=== PATIENT | female | born 1935 | race Two or more races ===

== ENCOUNTER 2018-04-29 18:18 | Inpatient (IN) | payer MEDICARE, MEDICAID ==
[~2018-04-29] VITALS: Ht 165.1 cm; Wt 59.1 kg
[2018-04-29 19:59] LABS: Basophils # (auto) 0 uL; Basophils % (auto) 0.7 % (0.0-2.0); Eosinophils # (auto) 0 uL; Eosinophils % (auto) 0.7 % (0.0-7.0); Hematocrit 33.1 % (36.0-46.0); Hemoglobin 11.1 g/dL (12.2-16.2); Lymphocytes # (auto) 1.1 uL; Lymphocytes % (auto) 19.4 % (10.0-50.0); Mean Corpuscular Hemoglobin 29.1 pg (28.0-32.0); Mean Corpuscular Hgb Conc. 33.4 g/dL (32.0-36.0); Monocytes # (auto) 0.5 uL; Monocytes % (auto) 9.5 % (0.0-12.0); Neutrophils # (auto) 3.9 uL; Neutrophils % (auto) 69.7 % (37.0-80.0); Nucleated Red Blood Cells % 0.2 %; Platelet Count (auto) 186 10^3/uL (140-450); Red Blood Cells 3.81 10^6/uL (4.0-5.20); Red Cell Distribution Width 16.7 % (11.8-14.3); White Blood Cell 5.6 10^3/uL (4.4-10.8)
[2018-04-29 20:16] LABS: Albumin 3.6 g/dL (3.4-5.0); Calcium 8.7 mg/dL (8.5-10.1); Potassium 4.3 mmol/L (3.5-5.1)
[2018-04-29 20:21] LABS: BUN/Creatinine Ratio 23.9; Bilirubin, Total 1.4 mg/dL (0.2-1.0); Total Protein 7.5 g/dL (6.4-8.2)
[2018-04-29] MEDS ORDERED: SODIUM CHLORIDE 0.9% 1,000 ML IV ONE (21:45)
[2018-04-29] MEDS ORDERED: MORPHINE SULFATE 4 MG/ML SYR/VIAL IV ONE (21:45)
[2018-04-29] MEDS ORDERED: NITROGLYCERIN 0.4 MG SL TAB SL ONE (21:45)
[2018-04-29 23:16] LABS: Urine Bacteria MOD /hpf (None Seen); Urine Blood TRACE /uL (Negative); Urine Specific Gravity 1.012 (1.001-1.035); Urine WBC 48 /hpf (0 - 5)
[2018-04-30] MEDS ORDERED: NITROGLYCERIN 0.4 MG SL TAB SL PRN (04:45)
[2018-04-30] MEDS ORDERED: ACETAMINOPHEN 500 MG TAB PO PRN (04:45)
[2018-04-30] MEDS ORDERED: ONDANSETRON HCL 4 MG/2 ML VIAL IV PRN (04:45)
[2018-04-30] MEDS ORDERED: ALBUTEROL SULF 2.5 MG/0.5ML(0.5%) NEB SOLN NEB PRN (04:45)
[2018-04-30] MEDS: CARVEDILOL 3.125 MG TAB PO SCH ×2 (08:00→18:17)
[2018-04-30 08:16] VITALS: BP 138/60
[2018-04-30 08:20] LABS: Basophils # (auto) 0 uL; Basophils % (auto) 0.7 % (0.0-2.0); Eosinophils # (auto) 0.1 uL; Eosinophils % (auto) 0.8 % (0.0-7.0); Hematocrit 30.6 % (36.0-46.0); Hemoglobin 10.3 g/dL (12.2-16.2); Lymphocytes # (auto) 1.4 uL; Lymphocytes % (auto) 21.7 % (10.0-50.0); Mean Corpuscular Hemoglobin 28.5 pg (28.0-32.0); Mean Corpuscular Hgb Conc. 33.5 g/dL (32.0-36.0); Mean Corpuscular Volume 85.1 fL (80.0-100.0); Monocytes # (auto) 0.6 uL; Monocytes % (auto) 9.3 % (0.0-12.0); Neutrophils # (auto) 4.3 uL; Neutrophils % (auto) 67.5 % (37.0-80.0); Nucleated Red Blood Cells % 0.1 %; Platelet Count (auto) 176 10^3/uL (140-450); Red Cell Distribution Width 16.3 % (11.8-14.3); White Blood Cell 6.4 10^3/uL (4.4-10.8)
[2018-04-30 08:50] LABS: Potassium 4.3 mmol/L (3.5-5.1)
[2018-04-30] MEDS: cefTRIAXone 1GM/50ML D5W 50 ML IV SCH (09:00)
[2018-04-30 09:49] LABS: INR 1.08 (0.9-1.15); Partial Thromboplastin Time 26.1 sec (23.78-33.04); Prothrombin Time 11.5 sec (9.27-12.13)
[2018-04-30] MEDS: ASPirin-EC 81 mg tab PO SCH (10:00)
[2018-04-30] MEDS: HYDROcodone-ACET 5/325MG TAB PO PRN ×2 (10:30→17:30)
[2018-04-30 17:07] VITALS: BP 132/76
[2018-04-30] MEDS ORDERED: HYDROmorphone HCL 2 MG/ML VL IV PRN (18:15)
[2018-04-30] MEDS: MORPHINE SULFATE 4 MG/ML SYR/VIAL IV PRN (18:53)
[2018-04-30 22:00] VITALS: BP 158/74
[2018-04-30] MEDS ORDERED: MONTELUKAST SODIUM 10 MG TAB PO SCH (22:00)
[2018-04-30] MEDS ORDERED: ATORVASTATIN 20 MG TAB PO SCH (22:00)
[2018-05-01 05:00] VITALS: BP 155/69
[2018-05-01 08:00] VITALS: BP 158/75
[2018-05-01] MEDS: MORPHINE SULFATE 4 MG/ML SYR/VIAL IV PRN (08:33)
[2018-05-01] MEDS: CARVEDILOL 3.125 MG TAB PO SCH (08:34)
[2018-05-01 09:00] VITALS: BP 158/75
[2018-05-01] MEDS: cefTRIAXone 1GM/50ML D5W 50 ML IV SCH (09:19)
[2018-05-01] MEDS: HYDROcodone-ACET 5/325MG TAB PO PRN (09:20)
[2018-05-01] MEDS: ASPirin-EC 81 mg tab PO SCH (09:20)
[2018-05-01] MEDS ORDERED: [UNRECOGNIZED DRUG - CODE] PO (10:30)
[2018-05-01] MEDS ORDERED: ACET250T3 PO (10:30)
[2018-05-01] MEDS ORDERED: ATOR40TA52 PO (10:30)
[2018-05-01] MEDS ORDERED: FLUT0.05 NAS (10:30)
[2018-05-01] MEDS ORDERED: ASPI-231 PO (10:30)
[2018-05-01] MEDS ORDERED: OMEP20TA PO (10:30)
[2018-05-01] MEDS ORDERED: MIRA25TA OR (10:30)
[2018-05-01] MEDS ORDERED: BUME1TAB PO (10:30)
[2018-05-01] MEDS ORDERED: CARV6.2551 PO (10:30)
[2018-05-01] MEDS ORDERED: ASCO-22 PO (10:30)
[2018-05-01] MEDS ORDERED: CHOL20007 OR (10:30)
[2018-05-01] MEDS ORDERED: MONT10TA34 OR (10:30)
[2018-05-01] MEDS ORDERED: DICL1GEL26 TD (10:30)
[2018-05-01] MEDS ORDERED: LOPE2CAP PO (10:30)
[2018-05-01] MEDS ORDERED: IPRIH IN (10:30)
[2018-05-01] MEDS ORDERED: AMIO200T33 PO (10:30)
[2018-05-01] MEDS ORDERED: MAGN400T5 OR (10:30)
[2018-05-01 11:25] VITALS: BP 158/75
[2018-05-01 13:00] VITALS: BP 157/74
[2018-05-01 16:39] VITALS: BP 149/63
== END 2018-05-01 17:22 | disposition home or self-care (01) | DRG 315 ==
LOC: ER 18:18 → TELE 18:19 → TELE-CENTR 04-30 08:34
PROVIDERS: ADMIT Nurse Practitioner Family; ATTEND Internal Medicine
DX: S26.91XA Contusion of heart, unspecified with or without hemopericardium, initial encounter (principal); N39.0 Urinary tract infection, site not specified; I50.42 Chronic combined systolic (congestive) and diastolic (congestive) heart failure; I11.0 Hypertensive heart disease with heart failure; D64.9 Anemia, unspecified; I25.10 Atherosclerotic heart disease of native coronary artery without angina pectoris; Z79.82 Long term (current) use of aspirin; Z88.2 Allergy status to sulfonamides; Z95.0 Presence of cardiac pacemaker; Y93.89 Activity, other specified; Y99.8 Other external cause status; Y92.488 Other paved roadways as the place of occurrence of the external cause; V29.9XXA Motorcycle rider (driver) (passenger) injured in unspecified traffic accident, initial encounter
CPT/HCPCS: 36415; 71045; 80048; 80053; 81001; 82550; 82553; 84484; 85025; 85379; 85610; 85730; 87086; 93005; 93306; 96361; 96365; 96375; G0378; J0696; J2405

== ENCOUNTER 2022-11-09 14:49 | Inpatient (IN) | payer MEDICARE, MEDICAID ==
[~2022-11-09] VITALS: Ht 152.4 cm; Wt 66.5 kg
[~2022-11-09 14:49] MED LIST: ACET250T20 PO; AMIO200T33 PO; ASCO500T16 PO; ASPI1TAB20 PO; ATOR40TA52 PO; BUME1TAB3 PO; CARV6.2551 PO; CHOL20007 OR; DICL1GEL26 TD; FLUT0.05 NAS; IPRIH IN; LOPE2CAP PO; MAGN400T40 OR; MIRA25TA OR; MONT-8 OR; OMEP20TA PO; [UNRECOGNIZED DRUG - CODE] PO
[2022-11-09 16:07] LABS: Basophils # (auto) 0 10 ^3/uL (0-0.2); Basophils % (auto) 0.3 % (0.0-2.0); Eosinophils # (auto) 0 10 ^3/uL (0-0.8); Eosinophils % (auto) 0.4 % (0.0-7.0); Hematocrit 27.3 % (36.0-46.0); Lymphocytes # (auto) 1.1 10 ^3/uL (0.4-5.4); Lymphocytes % (auto) 21.1 % (10.0-50.0); Mean Corpuscular Hemoglobin 27.9 pg (28.0-32.0); Mean Corpuscular Hgb Conc. 32.9 g/dL (32.0-36.0); Mean Corpuscular Volume 84.8 fL (80.0-100.0); Monocytes # (auto) 0.6 10 ^3/uL (0-1.3); Monocytes % (auto) 11.6 % (0.0-12.0); Neutrophils # (auto) 3.4 10 ^3/uL (1.6-8.6); Neutrophils % (auto) 66.6 % (37.0-80.0); Nucleated Red Blood Cells % 0.3 %; Red Blood Cells 3.22 10^6/uL (4.0-5.20); Red Cell Distribution Width 17.2 % (11.8-14.3); White Blood Cell 5.1 10^3/uL (4.4-10.8)
[2022-11-09 16:22] LABS: Albumin 3.5 g/dL (3.4-5.0); BUN/Creatinine Ratio 24.1 (10.0-20.0); Calcium 9.4 mg/dL (8.5-10.1); Potassium 4.7 mmol/L (3.5-5.1)
[2022-11-09 16:24] LABS: Bilirubin, Total 1.4 mg/dL (0.2-1.0); Total Protein 6.8 g/dL (6.4-8.2)
[2022-11-09] MEDS ORDERED: IPRATROPIUM BROM 0.5 MG/2.5ML INH SOL NEB ONE (16:30)
[2022-11-09] MEDS ORDERED: ALBUTEROL SULF 2.5 MG/0.5ML(0.5%) NEB SOLN NEB ONE (16:30)
[2022-11-09 16:43] LABS: Urine Bacteria NONE SEEN /hpf (None Seen); Urine Blood Negative /uL (Negative); Urine Budding Yeast MODERATE /hpf (None Seen); Urine Hyaline Cast FEW /lpf (0 - 2); Urine Specific Gravity 1.018 (1.001-1.035); Urine WBC 77 /hpf (0 - 5)
[2022-11-09] MEDS ORDERED: ASPirin 325 MG TAB PO ONE (17:00)
[2022-11-09] MEDS ORDERED: DOCUSATE SOD 100 MG CAP PO PRN (17:15)
[2022-11-09] MEDS ORDERED: NITROGLYCERIN 0.4 MG SL TAB SL PRN (17:15)
[2022-11-09] MEDS ORDERED: MORPHINE SULFATE INJ 2 MG/ml SYRG IV PRN (17:15)
[2022-11-09] MEDS ORDERED: HYDROcodone-ACET 5/325MG TAB PO PRN (17:15)
[2022-11-09] MEDS ORDERED: SITA25TA3 PO (17:25)
[2022-11-09] MEDS ORDERED: DEXTROSE (50%) 50ML SYRG IV PRN (17:45)
[2022-11-09] MEDS ORDERED: NITROGLYCERIN 0.4 MG SL TAB SL ONE (18:30)
[2022-11-09 21:16] VITALS: BP 157/46
[2022-11-09] MEDS: SODIUM CHLOR 0.9% PF (SALINE LOCK) 10ML VIAL/SYR IV SCH (22:41)
[2022-11-09] MEDS ORDERED: IOHEXOL 350 MG/ML 100ML IJ ONE (22:51)
[2022-11-09] MEDS: ACCU-CHEK COMFORT CURVE STRIP VI SCH (23:01)
[2022-11-09] MEDS: ATORVASTATIN 20 MG TAB PO SCH (23:09)
[2022-11-09] MEDS: InsuLIN REG 1unit/0.01ml Soln (100units/ml) SC SCH (23:09)
[2022-11-09] MEDS: MAGNESIUM OXIDE 400 MG TAB PO SCH (23:09)
[2022-11-09] MEDS: CARVEDILOL 3.125 MG TAB PO SCH (23:12)
[2022-11-10] MEDS: ALBUTEROL SULF 2.5 MG/0.5ML(0.5%) NEB SOLN NEB PRN ×2 (00:48→11:08)
[2022-11-10] MEDS: IPRATROPIUM BROM 0.5 MG/2.5ML INH SOL NEB PRN ×2 (00:49→11:08)
[2022-11-10] MEDS: SODIUM CHLOR 0.9% PF (SALINE LOCK) 10ML VIAL/SYR IV SCH ×3 (06:21→21:02)
[2022-11-10 06:37] LABS: Basophils # (auto) 0 10 ^3/uL (0-0.2); Eosinophils # (auto) 0 10 ^3/uL (0-0.8); Lymphocytes # (auto) 1.1 10 ^3/uL (0.4-5.4); Monocytes # (auto) 0.7 10 ^3/uL (0-1.3); Neutrophils # (auto) 3.6 10 ^3/uL (1.6-8.6); White Blood Cell 5.4 10^3/uL (4.4-10.8)
[2022-11-10 06:39] LABS: Basophils % (auto) 0.4 % (0.0-2.0); Eosinophils % (auto) 0.7 % (0.0-7.0); Hematocrit 25.2 % (36.0-46.0); Hemoglobin 8.6 g/dL (12.2-16.2); Lymphocytes % (auto) 20.5 % (10.0-50.0); Mean Corpuscular Hemoglobin 28.9 pg (28.0-32.0); Mean Corpuscular Hgb Conc. 34.4 g/dL (32.0-36.0); Mean Corpuscular Volume 84.1 fL (80.0-100.0); Monocytes % (auto) 12.2 % (0.0-12.0); Neutrophils % (auto) 66.2 % (37.0-80.0); Nucleated Red Blood Cells % 0.2 %; Red Blood Cells 2.99 10^6/uL (4.0-5.20); Red Cell Distribution Width 16.9 % (11.8-14.3)
[2022-11-10] MEDS: ACCU-CHEK COMFORT CURVE STRIP VI SCH ×4 (06:39→21:28)
[2022-11-10] MEDS: InsuLIN REG 1unit/0.01ml Soln (100units/ml) SC SCH ×4 (06:41→21:31)
[2022-11-10 06:59] LABS: Potassium 4.3 mmol/L (3.5-5.1)
[2022-11-10 07:08] LABS: Albumin 3.2 g/dL (3.4-5.0); BUN/Creatinine Ratio 28.7 (10.0-20.0); Bilirubin, Total 1.3 mg/dL (0.2-1.0); Calcium 9.2 mg/dL (8.5-10.1); Total Protein 6.1 g/dL (6.4-8.2)
[2022-11-10] MEDS: PATIENTS OWN MEDICATION (Sitagliptin Phosphate (Januvia) 1 TAB) PO SCH (10:00)
[2022-11-10] MEDS: MIRABEGRON BASE 25 MG PO SCH (10:00)
[2022-11-10] MEDS: BUMETANIDE 1 MG TAB PO SCH (10:42)
[2022-11-10] MEDS: CARVEDILOL 3.125 MG TAB PO SCH ×2 (10:43→21:02)
[2022-11-10] MEDS: ASPirin-EC 81 mg tab PO SCH (10:43)
[2022-11-10] MEDS: AMIODARONE HCL 200 MG TAB PO SCH (10:43)
[2022-11-10] MEDS: PANTOPRAZOLE 40 MG TAB PO SCH (10:44)
[2022-11-10] MEDS: MAGNESIUM OXIDE 400 MG TAB PO SCH ×2 (10:44→21:01)
[2022-11-10] MEDS: ASCORBIC ACID 500 MG TAB PO SCH (10:44)
[2022-11-10] MEDS ORDERED: hydrALAZINE HCL 20 MG/ML VL IV PRN (11:45)
[2022-11-10] MEDS ORDERED: SACUBITRIL-VALSARTAN 24mg/26mg TAB PO ONE (11:45)
[2022-11-10] MEDS: ACETAMINOPHEN 325 MG TAB PO PRN (14:12)
[2022-11-10 16:18] VITALS: BP 142/51
[2022-11-10 17:00] VITALS: BP 142/51
[2022-11-10] MEDS: ATORVASTATIN 20 MG TAB PO SCH (21:01)
[2022-11-10] MEDS: SACUBITRIL-VALSARTAN 24mg/26mg TAB PO SCH (21:27)
[2022-11-10 22:00] VITALS: BP 175/43
[2022-11-11] MEDS: ONDANSETRON HCL 4 MG/2 ML VIAL IV PRN ×2 (04:25→18:11)
[2022-11-11 05:00] VITALS: BP 148/34
[2022-11-11] MEDS: EMPAGLIFLOZIN 10 MG TAB PO SCH (06:28)
[2022-11-11] MEDS: SODIUM CHLOR 0.9% PF (SALINE LOCK) 10ML VIAL/SYR IV SCH ×3 (06:28→22:24)
[2022-11-11] MEDS: ACCU-CHEK COMFORT CURVE STRIP VI SCH ×4 (06:30→21:18)
[2022-11-11] MEDS: InsuLIN REG 1unit/0.01ml Soln (100units/ml) SC SCH ×4 (06:30→21:55)
[2022-11-11 09:00] VITALS: BP 110/47
[2022-11-11] MEDS: ASCORBIC ACID 500 MG TAB PO SCH (09:48)
[2022-11-11] MEDS: PANTOPRAZOLE 40 MG TAB PO SCH (09:49)
[2022-11-11] MEDS: ASPirin-EC 81 mg tab PO SCH (09:49)
[2022-11-11] MEDS: MAGNESIUM OXIDE 400 MG TAB PO SCH ×2 (09:49→21:16)
[2022-11-11] MEDS: AMIODARONE HCL 200 MG TAB PO SCH (09:49)
[2022-11-11] MEDS: CARVEDILOL 3.125 MG TAB PO SCH ×2 (09:51→21:16)
[2022-11-11] MEDS: SACUBITRIL-VALSARTAN 24mg/26mg TAB PO SCH ×2 (09:51→21:15)
[2022-11-11] MEDS: MIRABEGRON BASE 25 MG PO SCH (09:52)
[2022-11-11] MEDS: BUMETANIDE 1 MG TAB PO SCH (09:52)
[2022-11-11] MEDS: PATIENTS OWN MEDICATION (Sitagliptin Phosphate (Januvia) 1 TAB) PO SCH (09:52)
[2022-11-11 12:44] VITALS: BP 118/53
[2022-11-11 17:00] VITALS: BP 119/47
[2022-11-11] MEDS ORDERED: ALBUTEROL SULF 2.5 MG/0.5ML(0.5%) NEB SOLN NEB ONE (19:45)
[2022-11-11] MEDS: ATORVASTATIN 20 MG TAB PO SCH (21:16)
[2022-11-11 22:03] VITALS: BP 116/46
[2022-11-12] VITALS (7 sets, daily range): BP systolic 93–134; BP diastolic 32–45
[2022-11-12] MEDS: ACCU-CHEK COMFORT CURVE STRIP VI SCH ×4 (06:03→21:34)
[2022-11-12] MEDS: InsuLIN REG 1unit/0.01ml Soln (100units/ml) SC SCH ×4 (06:03→21:36)
[2022-11-12] MEDS: EMPAGLIFLOZIN 10 MG TAB PO SCH (06:03)
[2022-11-12] MEDS: SODIUM CHLOR 0.9% PF (SALINE LOCK) 10ML VIAL/SYR IV SCH ×3 (06:04→22:16)
[2022-11-12] MEDS: ACETAMINOPHEN 325 MG TAB PO PRN ×2 (06:16→22:16)
[2022-11-12] MEDS: IPRATROPIUM BROM 0.5 MG/2.5ML INH SOL NEB PRN (09:26)
[2022-11-12] MEDS: ALBUTEROL SULF 2.5 MG/0.5ML(0.5%) NEB SOLN NEB PRN (09:26)
[2022-11-12] MEDS: PATIENTS OWN MEDICATION (Sitagliptin Phosphate (Januvia) 1 TAB) PO SCH (10:00)
[2022-11-12] MEDS: SACUBITRIL-VALSARTAN 24mg/26mg TAB PO SCH ×2 (10:00→21:34)
[2022-11-12] MEDS: MIRABEGRON BASE 25 MG PO SCH (10:00)
[2022-11-12] MEDS: BUMETANIDE 1 MG TAB PO SCH (10:00)
[2022-11-12] MEDS: CARVEDILOL 3.125 MG TAB PO SCH ×2 (10:00→22:16)
[2022-11-12] MEDS: ASPirin-EC 81 mg tab PO SCH (10:01)
[2022-11-12] MEDS: ASCORBIC ACID 500 MG TAB PO SCH (10:01)
[2022-11-12] MEDS: AMIODARONE HCL 200 MG TAB PO SCH (10:01)
[2022-11-12] MEDS: MAGNESIUM OXIDE 400 MG TAB PO SCH ×2 (10:01→21:34)
[2022-11-12] MEDS: PANTOPRAZOLE 40 MG TAB PO SCH (10:01)
[2022-11-12] MEDS: cefTRIAXone 1GM/50ML D5W 50 ML IV SCH (16:56)
[2022-11-12] MEDS: ATORVASTATIN 20 MG TAB PO SCH (21:33)
[2022-11-12] MEDS: ONDANSETRON HCL 4 MG/2 ML VIAL IV PRN (21:34)
[2022-11-13 05:00] VITALS: BP 106/42
[2022-11-13] MEDS: SODIUM CHLOR 0.9% PF (SALINE LOCK) 10ML VIAL/SYR IV SCH ×2 (05:13→14:00)
[2022-11-13] MEDS: ACCU-CHEK COMFORT CURVE STRIP VI SCH ×4 (05:13→21:45)
[2022-11-13] MEDS: InsuLIN REG 1unit/0.01ml Soln (100units/ml) SC SCH ×4 (05:13→21:44)
[2022-11-13] MEDS: ACETAMINOPHEN 325 MG TAB PO PRN ×2 (05:13→17:14)
[2022-11-13 08:35] VITALS: BP 111/45
[2022-11-13] MEDS: IPRATROPIUM BROM 0.5 MG/2.5ML INH SOL NEB PRN (09:49)
[2022-11-13] MEDS: ALBUTEROL SULF 2.5 MG/0.5ML(0.5%) NEB SOLN NEB PRN (09:49)
[2022-11-13] MEDS ORDERED: Sitagliptin Phosphate (Januvia) 25 MG TABLET PO SCH (10:00)
[2022-11-13] MEDS: MIRABEGRON BASE 25 MG PO SCH (10:00)
[2022-11-13] MEDS: CARVEDILOL 3.125 MG TAB PO SCH ×2 (10:00→21:34)
[2022-11-13] MEDS: SACUBITRIL-VALSARTAN 24mg/26mg TAB PO SCH ×2 (10:00→21:33)
[2022-11-13] MEDS: BUMETANIDE 1 MG TAB PO SCH (10:00)
[2022-11-13] MEDS: ASPirin-EC 81 mg tab PO SCH (10:16)
[2022-11-13] MEDS: AMIODARONE HCL 200 MG TAB PO SCH (10:17)
[2022-11-13] MEDS: MAGNESIUM OXIDE 400 MG TAB PO SCH ×2 (10:18→21:33)
[2022-11-13] MEDS: PANTOPRAZOLE 40 MG TAB PO SCH (10:18)
[2022-11-13] MEDS: ASCORBIC ACID 500 MG TAB PO SCH (10:18)
[2022-11-13] MEDS: cefTRIAXone 1GM/50ML D5W 50 ML IV SCH (10:19)
[2022-11-13 12:40] VITALS: BP 128/63
[2022-11-13] MEDS: Sitagliptin Phosphate (Januvia) 25 MG TABLET PO SCH (13:10)
[2022-11-13 16:35] VITALS: BP 119/35
[2022-11-13] MEDS: ATORVASTATIN 20 MG TAB PO SCH (21:35)
[2022-11-13 22:00] VITALS: BP 131/51
[2022-11-14] MEDS: SODIUM CHLOR 0.9% PF (SALINE LOCK) 10ML VIAL/SYR IV SCH ×3 (01:36→15:23)
[2022-11-14 05:00] VITALS: BP 118/46
[2022-11-14] MEDS: ACCU-CHEK COMFORT CURVE STRIP VI SCH ×2 (06:10→11:35)
[2022-11-14] MEDS: InsuLIN REG 1unit/0.01ml Soln (100units/ml) SC SCH ×2 (06:10→11:43)
[2022-11-14 08:00] VITALS: BP 139/47
[2022-11-14 09:00] VITALS: BP 139/47
[2022-11-14] MEDS: MIRABEGRON BASE 25 MG PO SCH (10:00)
[2022-11-14] MEDS: Sitagliptin Phosphate (Januvia) 25 MG TABLET PO SCH (10:00)
[2022-11-14] MEDS: cefTRIAXone 1GM/50ML D5W 50 ML IV SCH (10:01)
[2022-11-14] MEDS: ASPirin-EC 81 mg tab PO SCH (10:02)
[2022-11-14] MEDS: SACUBITRIL-VALSARTAN 24mg/26mg TAB PO SCH (10:02)
[2022-11-14] MEDS: ASCORBIC ACID 500 MG TAB PO SCH (10:02)
[2022-11-14] MEDS: MAGNESIUM OXIDE 400 MG TAB PO SCH (10:03)
[2022-11-14] MEDS: BUMETANIDE 1 MG TAB PO SCH (10:03)
[2022-11-14] MEDS: CARVEDILOL 3.125 MG TAB PO SCH (10:03)
[2022-11-14] MEDS: AMIODARONE HCL 200 MG TAB PO SCH (10:03)
[2022-11-14] MEDS: PANTOPRAZOLE 40 MG TAB PO SCH (10:04)
[2022-11-14] MEDS ORDERED: CEPH-510 PO (13:23)
[2022-11-14 14:57] VITALS: BP 118/46
== END 2022-11-14 16:07 | disposition home or self-care (01) | DRG 280 ==
LOC: ER 14:49 → TELE 17:25 → TELE-WESTW 11-10 16:12
PROVIDERS: ADMIT Nurse Practitioner Family; ATTEND Internal Medicine
DX: I11.0 Hypertensive heart disease with heart failure (principal); I50.43 Acute on chronic combined systolic (congestive) and diastolic (congestive) heart failure; I21.A1 Myocardial infarction type 2; N17.9 Acute kidney failure, unspecified; N39.0 Urinary tract infection, site not specified; E11.9 Type 2 diabetes mellitus without complications; Z20.822 Contact with and (suspected) exposure to COVID-19; E78.5 Hyperlipidemia, unspecified; J44.9 Chronic obstructive pulmonary disease, unspecified; D64.9 Anemia, unspecified; I16.0 Hypertensive urgency; I27.20 Pulmonary hypertension, unspecified; I48.0 Paroxysmal atrial fibrillation; Z85.42 Personal history of malignant neoplasm of other parts of uterus; Z95.810 Presence of automatic (implantable) cardiac defibrillator; Z83.3 Family history of diabetes mellitus; Z88.2 Allergy status to sulfonamides; Z90.711 Acquired absence of uterus with remaining cervical stump
CPT/HCPCS: 36415; 71045; 71275; 78582; 80053; 81001; 82962; 83735; 83880; 84484; 85025; 85379; 87086; 87426; 93005; 93306; 93970; 94640; 99291; G0378; J0696; J1815; J2405

== ENCOUNTER 2024-05-23 13:32 | Inpatient (IN) | payer MEDICARE, MEDICAID ==
[~2024-05-23] VITALS: Ht 157.5 cm; Wt 54.8 kg
[~2024-05-23 13:32] MED LIST changes: +CEPH-510 PO; -CHOL20007 OR; +CHOL20007 PO; -MAGN400T40 OR; +MAGN400T40 PO; +SITA25TA3 PO
[2024-05-23 14:32] LABS: Urine Bacteria FEW /hpf (None Seen); Urine Blood TRACE /uL (Negative); Urine Clarity Turbid (Clear); Urine Color Light-Yellow (Yellow); Urine Protein, UAD 1+ (Negative); Urine Specific Gravity 1.016 (1.001-1.035); Urine Urobilinogen Normal (Negative); Urine WBC 254 /hpf (0 - 5); Urine pH 5.5 (5.0-9.0)
--- NOTE | 2024-05-23 14:54 | ED.PDOC ---
General HPI Comments 88 year old female accompanied by daughter presents to the ED with chief complaint of dysuria. Daughter reports that the patient has been experiencing some dysuria with associated urine frequency, weakness, headache, and bilateral flank pain for the past month. Patient relays that she is now not able to move around on her own due to her sudden weakness. Daughter states patient is no longer on her blood pressure and diabetes medication. Patient denies any fever, chills, hematuria, dizziness, chest pain, or SOB. Chief Complaint: Urinary Time Seen by MD: 14:50 Primary Care Provider: SPENCER Reviewed notes: Nurses Notes, Medications, Allergies Allergies: Coded Allergies: Sulfa Antibiotics (Verified Allergy, Unknown, 04/29/18) Home Meds Active Scripts Cephalexin ( Keflex 500) 500 Mg Cap, 1 CAP PO QID, #28 CAP Prov:CANDE VERMA MD 11/14/22 Reported Medications Sitagliptin Phosphate (Januvia) 25 Mg Tab, 1 TAB PO DAILY 11/09/22 Diclofenac Sodium (Topical) (Voltaren) 1 % Gel, 1 % TD QID PRN for PAIN SCALE 7 THRU 10, GEL 05/01/18 Cholecalciferol (VITAMIN D3) 2,000 Unit Tab, 1000 UNIT OR BID, TAB 05/01/18 Psyllium (METAMUCIL MULTIHEALTH FIB) 63 % Pow, 49 % PO BID, POW 05/01/18 Omeprazole (Gnp Omeprazole) 20 Mg Tab, 20 MG PO DAILY, TAB 05/01/18 Montelukast Sodium (MONTELUKAST SODIUM) 10 Mg Tab, 10 MG OR HS, TAB 05/01/18 Mirabegron Base (MYRBETRIQ) 25 Mg Tab, 25 MG OR DAILY, TAB 05/01/18 Magnesium Oxide (MAGNESIUM OXIDE) 400 Mg Tab, 400 MG OR BID, TAB 05/01/18 Loperamide Hcl (Loperamide Hcl) 2 Mg Cap, 2 MG PO PRN, MG 05/01/18 Ipratropium [place] Hfa (Atrovent Hfa) 17 Mcg Aer, 0.5 MG IN QIDP PRN for SHORTNESS OF BREATH, AER 05/01/18 Fluticasone Propionate (Fluticasone Propionate) 0.05 % Cre, 220 MCG ARACELI BID for 30 Days, MCG 05/01/18 Carvedilol (Carvedilol) 6.25 Mg Tab, 6.25 MG PO Q12HR for 30 Days, MG 05/01/18 Bumetanide (Bumetanide) 1 Mg Tab, 1 MG PO DAILY for 30 Days, MG 05/01/18 Atorvastatin Calcium (ATORVASTATIN CALCIUM) 40 Mg Tab, 40 MG PO HS, TAB 05/01/18 Aspirin (Aspir-81) 81 Mg Tab, 1 TAB PO DAILY, #30 TAB 5 Refills 05/01/18 Ascorbic Acid (Ascorbic Acid) 500 Mg Tab, 1000 MG PO DAILY for 30 Days, MG 05/01/18 Amiodarone Hcl (Amiodarone Hcl) 200 Mg Tab, 200 MG PO DAILY for 30 Days 05/01/18 Acetazolamide (Acetazolamide) 250 Mg Tab, 500 MG PO Q8HP PRN for PAIN SCALE 7 THRU 10 for 30 Days, MG 0 Refills 05/01/18 Information Source: Patient, Relative (Daughter) Mode of Arrival: Ambulatory Severity: Moderate Inability to void: None Timing: Months Duration: Since onset Prehospital treatment: None Onset: Spontaneous Symptoms: Dysuria, Frequency, Other (Weakness, JAEGER) History of: None Location: (R) Flank, (L)Flank Modifying factors: None associated signs and symptoms: Flank Pain, Dysuria, Frequency Past Medical History PAST MEDICAL HISTORY: DM, HTN Surgical History: Pacemaker 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 History Family History Family History: Reviewed,noncontributory to illness, Unknown Social History Smoker: Non-Smoker Alcohol: Denies ETOH Use Drugs: Denies Drug Use Lives In: Home Constitutional: reports: weakness; denies: chills, diaphoresis, fatigue, fever, malaise, sweats, others EENTM: denies: blurred vision, double vision, ear bleeding, ear discharge, ear drainage, ear pain, ear ringing, eye pain, eye redness, hearing loss, mouth pain, mouth swelling, nasal discharge, nose bleeding, nose congestion, nose pain, photophobia, tearing, throat pain, throat swelling, voice changes, others Respiratory: denies: cough, hemoptysis, orthopnea, SOB at rest, shortness of breath, SOB with excertion, stridor, wheezing, others Cardiovascular: denies: chest pain, dizzy spells, diaphoresis, Dyspnea on exertion, edema, irregular heart beat, left arm pain, lightheadedness, palpitations, PND, syncope, others Gastrointestinal: denies: abdomen distended, abdominal pain, blood streaked bowels, constipated, diarrhea, dysphagia, difficulty swallowing, hematemesis, melena, nausea, poor appetite, poor fluid intake, rectal bleeding, rectal pain, vomiting, others Genitourinary: reports: dysuria, flank pain, frequency; denies: abnormal vagina bleeding, burning, dyspareunia, hematuria, incontinence, pain, , vagina discharge, urgency, others Neurological: reports: headache; denies: dizziness, fainting, left sided numbness, left sided weakness, numbness, paresthesia, pre-existing deficit, right sided numbness, right sided weakness, seizure, speech problems, tingling, tremors, weakness, others Musculoskeletal: denies: back pain, gout, joint pain, joint swelling, muscle pain, muscle stiffness, neck pain, others Integumetry: denies: bruises, change in color, change in hair/nails, dryness, laceration, lesions, lumps, rash, wounds, others Allergic/Immunocompromised: denies: Difficulty Healing, Frequent Infections, Hives, Itching, others Hematologic/Lymphatic: denies: anemia, blood clots, easy bleeding, easy bruising, swollen glands, others Endocrine: denies: excessive hunger, excessive sweating, excessive thirst, excessive urination, flushing, intolerance to cold, intolerance to heat, unexplained weight gain, unexplained weight loss, others Psychiatric: denies: anxiety, bipolar disorder, depression, hopeless, panic disorder, schizophrenia, sleepless, suicidal, others All Other Systems: Reviewed and Negative Physical Exam General Appearance: Moderate Distress, Normal HEENT: Normal ENT Inspection, PERRL/EOMI Neck: Full Range of Motion, Non-Tender, Normal, Normal Inspection Respiratory: Chest Non-Tender, Lungs Clear, No Accessory Muscle Use, No Respiratory Distress, Normal Breath Sounds Cardiovascular: No Edema, No JVD, No Murmur, No Gallop, Normal Peripheral Pulses, Regular Rate/Rhythm Breast Exam: Deferred Gastrointestinal: No Organomegaly, Non Tender, No Pulsatile Mass, Normal Bowel Sounds, Soft Genitalia: Deferred Pelvic: Deferred Rectal: Deferred Extremities: No calf tenderness, Normal capillary refill, Normal inspection, Normal range of motion, Non-tender, No pedal edema Musculoskeletal : Apperance: Normal Neurologic: Alert, refueler II-XII nml as Tested, No Motor Deficits, Normal Affect, Normal Mood, No Sensory Deficits Cerebellar Function: Normal Reflexes: Normal Skin: Dry, Normal Color, Warm Peripheral Pulses: 3+ Radial (R), 3+ Radial (L) Lymphatic: No Adenopathy Was a procedure done? Was a procedure done?: No Differential Diagnosis Kidney stone (Female): Musculoskeletal pain, Urinary obstruction, Urolithiasis Urinary Problem (Female): Pyelonephritis, UTI X-Ray, Labs, Meds, VS Vital Signs Date Time Temp Pulse Resp B/P (MAP) Pulse Ox O2 Delivery O2 Flow Rate FiO2 05/23/24 13:55 98.9 66 17 151/46 (81) 97 Lab Test 05/23/24 14:34 05/23/24 13:48 Range/Units White Blood Count 5.3 4.4-10.8 10^3/uL Red Blood Count 3.24 L 4.0-5.20 10^6/uL Hemoglobin 9.2 L 12.2-16.2 g/dL Hematocrit 27.7 L 36.0-46.0 % Mean Corpuscular Volume 85.6 80.0-100.0 fL Mean Corpuscular Hemoglobin 28.3 28.0-32.0 pg Mean Corpuscular Hemoglobin Concent 33.1 32.0-36.0 g/dL Red Cell Distribution Width 17.0 H 11.8-14.3 % Platelet Count 199 140-450 10^3/uL Mean Platelet Volume 10.6 6.9-10.8 fL Neutrophils (%) (Auto) 64.3 37.0-80.0 % Lymphocytes (%) (Auto) 20.9 10.0-50.0 % Monocytes (%) (Auto) 13.2 H 0.0-12.0 % Eosinophils (%) (Auto) 1.0 0.0-7.0 % Basophils (%) (Auto) 0.6 0.0-2.0 % Neutrophils # (Auto) 3.4 1.6-8.6 10 ^3/uL Lymphocytes # (Auto) 1.1 0.4-5.4 10 ^3/uL Monocytes # (Auto) 0.7 0-1.3 10 ^3/uL Eosinophils # (Auto) 0.1 0-0.8 10 ^3/uL Basophils # (Auto) 0 0-0.2 10 ^3/uL Nucleated Red Blood Cells 0.3 % Sodium Level 145 136-145 mmol/L Potassium Level 4.0 3.5-5.1 mmol/L Chloride Level 112 H 98-107 mmol/L Carbon Dioxide Level 25 20-31 mmol/L Anion Gap 8 5-15 Blood Urea Nitrogen 25 H 9-23 mg/dL Creatinine 1.23 H 0.550-1.02 mg/dL Glomerular Filtration Rate Calc 42 >90 mL/min BUN/Creatinine Ratio 20.3 H 10.0-20.0 Serum Glucose 100 74-106 mg/dL Calcium Level 10.3 8.7-10.4 mg/dL Troponin I High Sensitivity 220 *H </=34 ng/L Urine Color Light-yellow Yellow Urine Clarity Turbid H Clear Urine pH 5.5 5.0-9.0 Urine Specific [place] 1.016 1.001-1.035 Urine Protein 1+ H Negative Urine Ketones Negative Negative Urine Blood Trace H Negative /uL Urine Nitrite Negative Negative Urine Bilirubin Negative Negative Urine Urobilinogen Normal Negative mg/dL Urine Leukocyte Esterase 3+ Negative /uL Urine RBC 11 0 - 4 /hpf Urine WBC 254 0 - 5 /hpf Urine Squamous Epithelial Cells None seen <5 /hpf Urine Bacteria Few H None Seen /hpf Urine Glucose Normal Normal mg/dL Patient alert. Complaining of chest pain. Vitals stable. Answering all questions. Kidney function elevated. Cardiac marker elevated. Was given aspirin. Was given Lovenox. Was given Rocephin. EKG reviewed does not show any acute changes. Cardiology consultation. Echocardiogram. Explained to the patient. Continue cardiac monitoring. Time of 1ST Reevaluation: 15:50 Reevaluation 1ST: Unchanged Patient Education/Counseling: Diagnosis, Treatment Family Education/Counseling: Diagnosis, Treatment Departure 1 Departure Time of Disposition: 17:11 Impression: Primary Impression: NSTEMI (non-ST elevated myocardial infarction) Additional Impression: UTI (urinary tract infection) Qualified Codes: N30.00 - Acute cystitis without hematuria Disposition: ADMITTED INPATIENT Admit to: Med Surg Condition: Guarded Critical Care Note Critical Care Time?: Yes (45 min-critical care time only) Stability Stability form required: No Heart Score Heart Score: Heart Score Response (Comments) Value History Slightly Suspicious 0 EKG Normal 0 Age >65 2 Risk Factors >3 or Hx ASHD 2 Troponin >3 x's Normal limit 2 Total 6 I personally scribed for ALISHA JACOBSON MD ([email or web address]) on 05/23/24 at 14:54. Electronically submitted by Hardeep Olivarez ([email or web address]). I personally scribed for ALISHA JACOBSON MD ([email or web address]) on 05/23/24 at 14:55. Electronically submitted by Hardeep Olivarez ([email or web address]). ALISHA JACOBSON MD May 23, 2024 14:54
[2024-05-23 14:55] LABS: Basophils # (auto) 0 10 ^3/uL (0-0.2); Basophils % (auto) 0.6 % (0.0-2.0); Eosinophils # (auto) 0.1 10 ^3/uL (0-0.8); Hematocrit 27.7 % (36.0-46.0); Hemoglobin 9.2 g/dL (12.2-16.2); Lymphocytes # (auto) 1.1 10 ^3/uL (0.4-5.4); Lymphocytes % (auto) 20.9 % (10.0-50.0); Mean Corpuscular Hemoglobin 28.3 pg (28.0-32.0); Mean Corpuscular Hgb Conc. 33.1 g/dL (32.0-36.0); Mean Corpuscular Volume 85.6 fL (80.0-100.0); Monocytes # (auto) 0.7 10 ^3/uL (0-1.3); Monocytes % (auto) 13.2 % (0.0-12.0); Neutrophils # (auto) 3.4 10 ^3/uL (1.6-8.6); Neutrophils % (auto) 64.3 % (37.0-80.0); Nucleated Red Blood Cells % 0.3 %; Platelet Count (auto) 199 10^3/uL (140-450); Red Blood Cells 3.24 10^6/uL (4.0-5.20); White Blood Cell 5.3 10^3/uL (4.4-10.8)
[2024-05-23 14:57] LABS: Sodium 145 mmol/L (136-145)
[2024-05-23 14:58] LABS: Anion Gap 8 (5-15); Carbon Dioxide 25 mmol/L (20-31)
[2024-05-23 14:59] LABS: Calcium 10.3 mg/dL (8.7-10.4)
[2024-05-23 15:03] LABS: BUN/Creatinine Ratio 20.3 (10.0-20.0); Blood Urea Nitrogen 25 mg/dL (9-23); Chloride 112 mmol/L (98-107); Glucose 100 mg/dL (74-106)
[2024-05-23] MEDS ORDERED: NITROGLYCERIN 0.4 MG SL TAB SL PRN ×2 (15:45)
[2024-05-23] MEDS ORDERED: ZOLPIDEM TARTRATE 5 MG TAB PO PRN (15:45)
[2024-05-23] MEDS: SODIUM CHLORIDE 0.9% 1,000 ML IV SCH (15:45)
[2024-05-23] MEDS ORDERED: MORPHINE SULFATE INJ 2 MG/ml SYRG IV PRN (15:45)
[2024-05-23] MEDS ORDERED: MORPHINE SULFATE 4 MG/ML SYR/VIAL IV PRN (15:45)
[2024-05-23] MEDS: MAALOX PLUS or MAALOX 30 ML PO ONE (15:45)
[2024-05-23] MEDS: ASPirin 325 MG TAB PO SCH (15:45)
[2024-05-23] MEDS ORDERED: LORazepam 0.5 MG TAB PO PRN (15:45)
--- NOTE | 2024-05-23 16:21 | DVHHP2 ---
History of Present Illness Reason for Visit: urinary pain History of Present Illness 88-year-old female past medical history of diabetes hypertension comes to the ED with complaints of having pain while urinating patient states that for the past few days she has been having flank pain bilaterally been having trouble urinating having pain while urinating having generalized weakness and feeling like there was headaches and that she is getting dizzy sometimes and also having trouble with how many times she has to go to the bathroom patient was evaluated in the ED shown to have urinary tract infection and was recommended for inpatient admission management and continued care Cardiovascular: CAD, HTN Renal/: UTI Review of Systems Constitutional: Yes: Fever, Weakness; No: Chills, Sweats, Malaise, Other Eyes: No: Pain, Vision change, Conjunctivae inflammation, Eyelid inflammation, Other, Redness ENT: No: Ear pain, Ear discharge, Nose pain, Nose discharge, Nose congestion, Mouth pain, Mouth swelling, Throat pain, Throat swelling, Other Respiratory: No: Cough, Dry, Shortness of breath, SOB with excertion, Wheezing, Hemoptysis, Pleuritic Pain, Sputum, Wheezing, Other Cardiovascular: Chest Pain; No: Palpitations, Orthopnea, Paroxysmal Noc. Dyspnea, Edema, Lt Headedness, Other Gastrointestinal: No: Nausea, Vomiting, Abdominal Pain, Diarrhea, Constipation, Melena, Hematochezia, Other Genitourinary: Dysuria, Frequency, Incontinence; No Hematuria, No Retention, No Other Musculoskeletal: No: other, neck pain, shoulder pain, arm pain, back pain, hand pain, leg pain, foot pain Skin: No: Rash, Lesions, Jaundice, Bruising, Other Neurological: No: Weakness, Numbness, Incoordination, Change in speech, Confusion, Seizures, Other Allergies: Coded Allergies: Sulfa Antibiotics (Verified Allergy, Unknown, 04/29/18) Exam Vital Signs Vital Signs Date Time Temp Pulse Resp B/P (MAP) Pulse Ox O2 Delivery O2 Flow Rate FiO2 05/23/24 13:55 98.9 66 17 151/46 (81) 97 General Appearance: Alert, Oriented X3, mild distress HEENT: Atraumatic, PERRLA, EOMI Respiratory: Clear to auscultation, Normal air movement Cardiovascular: Regular rate, Normal S1, Normal S2 Abdominal: Normal bowel sounds, Soft Extremities: No clubbing, No cyanosis, No edema Skin: No rashes, No breakdown Neuro: Normal gait, Normal speech Psych/Mental Status: Mood NL Labs/Xrays Labs Test 05/23/24 14:34 05/23/24 13:48 Range/Units White Blood Count 5.3 4.4-10.8 10^3/uL Red Blood Count 3.24 L 4.0-5.20 10^6/uL Hemoglobin 9.2 L 12.2-16.2 g/dL Hematocrit 27.7 L 36.0-46.0 % Mean Corpuscular Volume 85.6 80.0-100.0 fL Mean Corpuscular Hemoglobin 28.3 28.0-32.0 pg Mean Corpuscular Hemoglobin Concent 33.1 32.0-36.0 g/dL Red Cell Distribution Width 17.0 H 11.8-14.3 % Platelet Count 199 140-450 10^3/uL Mean Platelet Volume 10.6 6.9-10.8 fL Neutrophils (%) (Auto) 64.3 37.0-80.0 % Lymphocytes (%) (Auto) 20.9 10.0-50.0 % Monocytes (%) (Auto) 13.2 H 0.0-12.0 % Eosinophils (%) (Auto) 1.0 0.0-7.0 % Basophils (%) (Auto) 0.6 0.0-2.0 % Neutrophils # (Auto) 3.4 1.6-8.6 10 ^3/uL Lymphocytes # (Auto) 1.1 0.4-5.4 10 ^3/uL Monocytes # (Auto) 0.7 0-1.3 10 ^3/uL Eosinophils # (Auto) 0.1 0-0.8 10 ^3/uL Basophils # (Auto) 0 0-0.2 10 ^3/uL Nucleated Red Blood Cells 0.3 % Sodium Level 145 136-145 mmol/L Potassium Level 4.0 3.5-5.1 mmol/L Chloride Level 112 H 98-107 mmol/L Carbon Dioxide Level 25 20-31 mmol/L Anion Gap 8 5-15 Blood Urea Nitrogen 25 H 9-23 mg/dL Creatinine 1.23 H 0.550-1.02 mg/dL Glomerular Filtration Rate Calc 42 >90 mL/min BUN/Creatinine Ratio 20.3 H 10.0-20.0 Serum Glucose 100 74-106 mg/dL Calcium Level 10.3 8.7-10.4 mg/dL Troponin I High Sensitivity 220 *H </=34 ng/L Urine Color Light-yellow Yellow Urine Clarity Turbid H Clear Urine pH 5.5 5.0-9.0 Urine Specific [place] 1.016 1.001-1.035 Urine Protein 1+ H Negative Urine Ketones Negative Negative Urine Blood Trace H Negative /uL Urine Nitrite Negative Negative Urine Bilirubin Negative Negative Urine Urobilinogen Normal Negative mg/dL Urine Leukocyte Esterase 3+ Negative /uL Urine RBC 11 0 - 4 /hpf Urine WBC 254 0 - 5 /hpf Urine Squamous Epithelial Cells None seen <5 /hpf Urine Bacteria Few H None Seen /hpf Urine Glucose Normal Normal mg/dL Assessment/Plan Assessment/Plan Admit to telemetry Generalized weakness In the setting of acute urinary tract infection Rule out pyelonephritis IV hydration IV antibiotics Possible need for physical therapy evaluation due to weakness and unsteady gait NSTEMI Elevated troponin 1st troponin greater than 200 Patient with no acute complaints of chest pain No stated history of palpations Patient does have a previous stated history of being on multiple medications for heart management Chest pain protocol Cardiology evaluation Patient remains at high risk due to age alone Unsure if able to be capped we will defer that decision to Cardiology Trend troponins Plan discussed with: Patient My Orders Orders - ALCIDES GIBSON MD Procedure Category Date Status Time Admit ADMIT 05/23/24 Verified 15:45 Code Status CODE 05/23/24 Verified 15:45 0.9%Ns 1000 Ml PHA 05/23/24 Verified 15:45 Aspirin Tablet PHA 05/24/24 Verified 10:00 Aspirin Tablet PHA 05/23/24 Verified 15:45 Lipitor 40mg Hs PHA 05/23/24 Verified Hi-Intensity 22:00 Carvedilol Tablet PHA 05/23/24 Verified (Coreg Tablet) 22:00 Lisinopril Tablet PHA 05/24/24 Verified (Zestril Tablet) 10:00 Morphine Sulfate PHA 05/23/24 Verified Injection 15:45 Acetaminophen Tablet PHA 05/23/24 Verified (Tylenol Tablet) 15:45 Zolpidem Tartrate PHA 05/23/24 Verified (Ambien) 15:45 Lorazepam Tablet PHA 05/23/24 Verified (Ativan Tablet) 15:45 Docusate Sodium PHA 05/24/24 Verified Capsule (Colace 10:00 Complete Blood Count LAB 05/24/24 Verified 04:00 Basic Metabolic Panel LAB 05/24/24 Verified 04:00 Nitroglycerin PHA 05/23/24 Verified Sublingual (Ntrostat 15:45 Ondansetron Hcl PHA 05/23/24 Verified (Zofran) 15:45 Electrocardigram EKG 05/23/24 Verified 15:45 Alum & Mag PHA 05/23/24 Verified Hydrox-Simethicone 15:45 Troponin-I Hs LAB 05/23/24 Verified 15:45 Cardiac JOYCELYN 05/23/24 Verified Rehabilitation - Outpa Nitroglycerin PHA 05/23/24 Verified Sublingual (Ntrostat 15:45 Morphine Sulfate PHA 05/23/24 Verified Injection 15:45 Stat Ekg For Chest JOYCELYN 05/23/24 Verified Pain 15:45 Notify Md Of Changes [facility] 05/23/24 Verified From Base 15:45 Rubber Compounder Formulator For [facility] 05/23/24 Verified 24 Hours 15:45 Emergency Dysrhythmia JOYCELYN 05/23/24 Verified Protocol 15:45 Rhythm Strips Once [facility] 05/23/24 Verified Every Shift 15:45 Oxygen By Nasal RT 05/23/24 Verified Cannula 15:45 * Cardiology Consult CONS 05/23/24 Verified 15:45 Problem List: (1) NSTEMI (non-ST elevated myocardial infarction) (2) UTI (urinary tract infection) (3) Elevated troponin Date of Service: May 23, 2024 Billing Provider: ALCIDES GIBSON MD Common Visit Codes: [id number] INP/OBS CARE (HIGH) ALCIDES GIBSON MD May 23, 2024 16:21
[2024-05-23] MEDS: ENOXAPARIN SOD 60 MG/0.6 ML SYRINGE SC ONE (17:15)
[2024-05-23] MEDS: ASPirin 81 mg TAB PO ONE (17:15)
[2024-05-23] MEDS: cefTRIAXone 1GM/50ML D5W 50 ML IV SCH (18:56)
[2024-05-23 21:28] VITALS: PULSE 60; RESP 16; O2SAT 99
[2024-05-23 23:10] VITALS: BP 187/77; PULSE 60; PULSE 61; RESP 18; RESP 20; TEMP 97.5; O2SAT 100
[2024-05-23 23:20] VITALS: BP 187/77; PULSE 61; RESP 20; TEMP 97.5; O2SAT 100
[2024-05-23] MEDS: ATORVASTATIN 20 MG TAB PO SCH (23:45)
[2024-05-23] MEDS: CARVEDILOL 3.125 MG TAB PO SCH (23:46)
[2024-05-24] VITALS (8 sets, daily range): BP systolic 107–174; BP diastolic 40–103; PULSE 60–64; RESP 16–20; TEMP 97–98.2; O2SAT 95–100
[2024-05-24] MEDS: cloNIDine HCL 0.1 MG TAB PO PRN (01:02)
[2024-05-24] MEDS: ACETAMINOPHEN 325 MG TAB PO PRN (01:02)
[2024-05-24] MEDS ORDERED: CETI10CA PO (01:59)
[2024-05-24 07:03] LABS: Basophils # (auto) 0 10 ^3/uL (0-0.2); Basophils % (auto) 0.4 % (0.0-2.0); Eosinophils # (auto) 0 10 ^3/uL (0-0.8); Eosinophils % (auto) 1.2 % (0.0-7.0); Lymphocytes # (auto) 0.8 10 ^3/uL (0.4-5.4); Lymphocytes % (auto) 23.5 % (10.0-50.0); Mean Corpuscular Hemoglobin 28.4 pg (28.0-32.0); Mean Corpuscular Hgb Conc. 33.3 g/dL (32.0-36.0); Mean Corpuscular Volume 85.2 fL (80.0-100.0); Monocytes # (auto) 0.5 10 ^3/uL (0-1.3); Monocytes % (auto) 13.7 % (0.0-12.0); Neutrophils # (auto) 2.1 10 ^3/uL (1.6-8.6); Neutrophils % (auto) 61.2 % (37.0-80.0); Nucleated Red Blood Cells % 0.2 %; Platelet Count (auto) 189 10^3/uL (140-450); Red Blood Cells 3.17 10^6/uL (4.0-5.20); Red Cell Distribution Width 17.2 % (11.8-14.3); White Blood Cell 3.4 10^3/uL (4.4-10.8)
[2024-05-24 07:19] LABS: Calcium 10.2 mg/dL (8.7-10.4); Sodium 143 mmol/L (136-145)
[2024-05-24 07:20] LABS: Anion Gap 7 (5-15); Carbon Dioxide 26 mmol/L (20-31)
[2024-05-24 07:25] LABS: BUN/Creatinine Ratio 18.6 (10.0-20.0); Blood Urea Nitrogen 18 mg/dL (9-23)
[2024-05-24 07:52] LABS: Chloride 110 mmol/L (98-107); Glucose 64 mg/dL (74-106)
[2024-05-24 08:11] LABS: Anisocytosis Slight
[2024-05-24 08:12] LABS: Macrocytosis Moderate
[2024-05-24 08:13] LABS: Platelet Estimate Adequate
[2024-05-24] MEDS: ASPirin 81 mg TAB PO SCH (09:37)
[2024-05-24] MEDS: DOCUSATE SOD 100 MG CAP PO SCH (09:37)
[2024-05-24] MEDS: LISINOPRIL 5 MG TAB PO SCH (09:38)
--- NOTE | 2024-05-24 12:53 | DVHPN2 ---
Subjective Patient continues to report having lower back pain, suprapubic pain, dysuria. Reviewed: Care Plan, H&P, Labs, Medications Changes from previous H/P or p: No Changes General: Per HPI Eyes: No Pain, No Vision change, No Conjunctivae inflammation, No Eyelid inflammation, No Other, No Redness ENT: No Ear pain, No Ear discharge, No Nose pain, No Nose discharge, No Nose congestion, No Mouth pain, No Mouth swelling, No Throat pain, No Throat swelling, No Other Cardiovascular: Chest Pain; No Palpitations, No Orthopnea, No Paroxysmal Noc. Dyspnea, No Edema, No Lt Headedness, No Other Respiratory: No Cough, No Dry, No Shortness of breath, No SOB with excertion, No Wheezing, No Hemoptysis, No Pleuritic Pain, No Sputum, No Other Gastrointestinal: No Nausea, No Vomiting, No Abdominal Pain, No Diarrhea, No Constipation, No Melena, No Hematochezia, No Other Genitourinary: Dysuria, Frequency, Incontinence; No Hematuria, No Retention, No Other Musculoskeletal: No other, No neck pain, No shoulder pain, No arm pain, No back pain, No hand pain, No leg pain, No foot pain Skin: No Rash, No Lesions, No Jaundice, No Bruising, No Other Objective Vitals Vital Signs Date Time Temp Pulse Resp B/P (MAP) Pulse Ox O2 Delivery O2 Flow Rate FiO2 05/24/24 12:23 153/79 05/24/24 09:37 63 05/24/24 09:00 98.2 18 99 98.2 05/24/24 07:30 Room Air* 0 21 Intake/Output Intake and Output 05/24/24 07:00 Intake Total 500 ml Balance 500 ml Intake Oral 200 ml IV Total 300 ml # Voids 2 General Appearance: Alert, Oriented X3, Cooperative, mild distress HEENT: Atraumatic, PERRLA Lungs: Clear to auscultation, Normal air movement Cardiovascular: Normal S1, Normal S2 Abdomen: Normal bowel sounds, Soft, No tenderness Musculoskeletal: Normal sensory function, Normal motor function Neuro: Normal gait, Normal speech Psych/Mental Status: Mental status NL, Mood NL Medications Current Medications Medications Dose Ordered Sig/Dee Route Start Time Stop Time Status Last Admin Dose Admin Sodium Chloride 1,000 ml @ 75 mls/hr [id number] IV 05/23/24 15:45 Aspirin 81 mg DAILY PO 05/24/24 10:00 05/24/24 09:37 81 MG Atorvastatin Calcium 40 mg HS PO 05/23/24 22:00 05/23/24 23:45 40 MG Carvedilol 6.25 mg Q12HR PO 05/23/24 22:00 05/24/24 09:37 6.25 MG Lisinopril 5 mg DAILY PO 05/24/24 10:00 05/24/24 09:38 5 MG Morphine Sulfate 2 mg Q30MP PRN IV 05/23/24 15:45 Acetaminophen 650 mg Q6HP PRN PO 05/23/24 15:45 05/24/24 01:02 650 MG Zolpidem Tartrate 5 mg QHSP PRN PO 05/23/24 15:45 Lorazepam 0.5 mg Q6HP PRN PO 05/23/24 15:45 Docusate Sodium 100 mg DAILY PO 05/24/24 10:00 05/24/24 09:37 100 MG Nitroglycerin 0.4 mg Q5MINP PRN SL 05/23/24 15:45 Ondansetron HCl 4 mg Q4HP PRN IV 05/23/24 15:45 Ceftriaxone Sodium 50 ml @ 100 mls/hr DAILY@09 IV 05/23/24 17:24 05/24/24 09:38 100 MLS/HR Clonidine HCl 0.1 mg Q4HP PRN PO 05/23/24 23:00 05/24/24 12:23 0.1 MG Laboratory Results Laboratory Tests 05/24/24 06:17 Chemistry Test 05/23/24 14:34 05/24/24 06:17 Calcium Level 10.3 mg/dL (8.7-10.4) 10.2 mg/dL (8.7-10.4) Urinalysis Test 05/23/24 13:48 Urine Color Light-yellow (Yellow) Urine Clarity Turbid (Clear) H Urine pH 5.5 (5.0-9.0) Urine Specific [place] 1.016 (1.001-1.035) Urine Protein 1+ (Negative) H Urine Ketones Negative (Negative) Urine Blood Trace /uL (Negative) H Urine Nitrite Negative (Negative) Urine Bilirubin Negative (Negative) Urine Urobilinogen Normal mg/dL (Negative) Urine Leukocyte Esterase 3+ /uL (Negative) Urine RBC 11 /hpf (0 - 4) Urine WBC 254 /hpf (0 - 5) Urine Squamous Epithelial Cells None seen /hpf (<5) Urine Bacteria Few /hpf (None Seen) H Urine Glucose Normal mg/dL (Normal) Labs and/or images reviewed: Labs reviewed by me, Image(s) reviewed by me Assessment/Plan Assessment/Plan Impression: -complicated cystitis -NSTEMI, probably type 2 -? CAD, history -primary hypertension Plan: -given blood noted in urinalysis, ordered kidney ultrasound -continue IV antibiotic therapy with Rocephin , add Pyridium -urine culture -cardiology consultation -continue aspirin and beta murphy -repeat troponin level -physical therapy -repeat labs in a.m. Total time spent with patient discussing and formulating plan of care: 35 minutes. This medical document was created using an electronic medical record system with [employer] dictation system. Although this document has been carefully reviewed, there may still be some phonetic and typographical errors. These areas are purely typographical due to imperfections of the software programs, and do not reflect any compromise in the patient's medical care. Plan discussed with: Patient, Other (RN) My Orders Orders - FRANCO CRESPO NP Procedure Category Date Status Time Urine Bacterial JOAQUIM 05/24/24 Logged Culture 11:55 Kidney US 05/24/24 Transmitted 12:46 Troponin-I Hs LAB 05/25/24 Verified 04:00 * Cardiology Consult CONS 05/24/24 Transmitted 12:46 Date of Service: May 24, 2024 Billing Provider: FRANCO CRESPO NP Common Visit Codes: [id number] INP/OBS CARE(HIGH) FRANCO CRESPO NP May 24, 2024 12:52
--- NOTE | 2024-05-24 13:23 | DVHINCON2 ---
Date Seen: May 24, 2024 Referring Physician TIFFANY Paul Reason for Consultation NSTEMI History of Present Illness This is a pleasant 88-year-old female who presented to the emergency room with a chief complaint of dysuria. The patient complains of dysuria associated with a burning sensation, frequency, dribbling, and lower back pain. Cardiology consulted given troponin levels in the 200s ng/L. There was no twelve lead electrocardiogram on file. Denies chest pain, palpitations, diaphoresis, shortness of breath, dizziness, or syncopal events. [place] primary scientific [place] [facility] [place] Significant medical history includes congestive heart failure, status post AICD implantation with generator exchange on 08/2022, pulmonary hypertension, paroxysmal atrial fibrillation on aspirin, hypertension, dyslipidemia, diabetes mellitus, and COPD. Past Medical History Past medical history reviewed. No other significant than mentioned above. Past Surgical History AICD implantation status post generator exchange on 2022 Partial hysterectomy Family History: Diabetes mellitus Family History Family history reviewed. Social History Denies the use of illicit drugs, alcohol, or tobacco use. Allergies: Coded Allergies: Sulfa Antibiotics (Verified Allergy, Unknown, 04/29/18) Codeine (Verified Adverse Reaction, Mild, 05/24/24) Home Meds Active Scripts Cephalexin ( Keflex 500) 500 Mg Cap, 1 CAP PO QID, #28 CAP Prov:CANDE VERMA MD 11/14/22 Reported Medications Cetirizine Hcl (Zyrtec Allergy) 10 Mg Cap, 5 MG PO DAILY, CAP 05/24/24 Sitagliptin Phosphate (Januvia) 25 Mg Tab, 1 TAB PO DAILY 11/09/22 Diclofenac Sodium (Topical) (Voltaren) 1 % Gel, 1 % TD QID PRN for PAIN SCALE 7 THRU 10, GEL 05/01/18 Cholecalciferol (VITAMIN D3) 2,000 Unit Tab, 1000 UNIT OR BID, TAB 05/01/18 Psyllium (METAMUCIL MULTIHEALTH FIB) 63 % Pow, 49 % PO BID, POW 05/01/18 Omeprazole (Gnp Omeprazole) 20 Mg Tab, 20 MG PO DAILY, TAB 05/01/18 Montelukast Sodium (MONTELUKAST SODIUM) 10 Mg Tab, 10 MG OR HS, TAB 05/01/18 Mirabegron Base (MYRBETRIQ) 25 Mg Tab, 25 MG OR DAILY, TAB 05/01/18 Magnesium Oxide (MAGNESIUM OXIDE) 400 Mg Tab, 400 MG OR BID, TAB 05/01/18 Loperamide Hcl (Loperamide Hcl) 2 Mg Cap, 2 MG PO PRN, MG 05/01/18 Ipratropium [place] Hfa (Atrovent Hfa) 17 Mcg Aer, 0.5 MG IN QIDP PRN for SHORTNESS OF BREATH, AER 05/01/18 Fluticasone Propionate (Fluticasone Propionate) 0.05 % Cre, 220 MCG ARACELI BID for 30 Days, MCG 05/01/18 Carvedilol (Carvedilol) 6.25 Mg Tab, 6.25 MG PO Q12HR for 30 Days, MG 05/01/18 Bumetanide (Bumetanide) 1 Mg Tab, 1 MG PO DAILY for 30 Days, MG 05/01/18 Atorvastatin Calcium (ATORVASTATIN CALCIUM) 40 Mg Tab, 40 MG PO HS, TAB 05/01/18 Aspirin (Aspir-81) 81 Mg Tab, 1 TAB PO DAILY, #30 TAB 5 Refills 05/01/18 Ascorbic Acid (Ascorbic Acid) 500 Mg Tab, 1000 MG PO DAILY for 30 Days, MG 05/01/18 Amiodarone Hcl (Amiodarone Hcl) 200 Mg Tab, 200 MG PO DAILY for 30 Days 05/01/18 Acetazolamide (Acetazolamide) 250 Mg Tab, 500 MG PO Q8HP PRN for PAIN SCALE 7 THRU 10 for 30 Days, MG 0 Refills 05/01/18 Home Meds Home medications reviewed. Current Medications Current Medications Medications (Trade) Dose Ordered Sig/Dee Route PRN Reason Start Time Stop Time Status Last Admin Sodium Chloride 1,000 ml @ 75 mls/hr [id number] IV 05/23/24 15:45 Aspirin 81 mg DAILY PO 05/24/24 10:00 05/24/24 09:37 Aspirin 325 mg DAILY PO 05/23/24 15:45 05/23/24 23:59 DC Atorvastatin Calcium (Lipitor) 40 mg HS PO 05/23/24 22:00 05/23/24 23:45 Carvedilol (Coreg Tablet) 6.25 mg Q12HR PO 05/23/24 22:00 05/24/24 09:37 Lisinopril (Zestril Tablet) 5 mg DAILY PO 05/24/24 10:00 05/24/24 09:38 Morphine Sulfate 2 mg Q30MP PRN IV FOR CHEST PAIN 05/23/24 15:45 Acetaminophen (Tylenol Tablet) 650 mg Q6HP PRN PO MILD PAIN (1-3 PAIN SCALE) 05/23/24 15:45 05/24/24 01:02 Zolpidem Tartrate (Ambien) 5 mg QHSP PRN PO FOR INSOMNIA 05/23/24 15:45 Lorazepam (Ativan Tablet) 0.5 mg Q6HP PRN PO ANXIETY 05/23/24 15:45 Docusate Sodium (Colace Capsule) 100 mg DAILY PO 05/24/24 10:00 05/24/24 09:37 Nitroglycerin (Ntrostat Sublingual) 0.4 mg Q5MINP PRN SL FOR CHEST PAIN 05/23/24 15:45 Ondansetron HCl (Zofran) 4 mg Q4HP PRN IV NAUSEA / VOMITING 05/23/24 15:45 Nitroglycerin (Ntrostat Sublingual) 0.4 mg Q5MINP PRN SL FOR CHEST PAIN 05/23/24 15:45 05/23/24 16:24 DC Morphine Sulfate 2 mg Q30M PRN IV FOR CHEST PAIN 05/23/24 15:45 05/23/24 16:24 DC Ceftriaxone Sodium 50 ml @ 100 mls/hr DAILY@09 IV 05/23/24 17:24 05/24/24 09:38 Clonidine HCl (Catapres Tablet) 0.1 mg Q4HP PRN PO SBP>150 05/23/24 23:00 05/24/24 12:23 Phenazopyridine HCl (Pyridium Tablet) 100 mg BIDWM PO 05/24/24 18:00 05/26/24 17:59 Review of Systems Constitutional: No symptom reported Ears, Nose, & Throat: No symptom reported Eyes: No symptom reported Neurological: No symptoms reported Pulmonary/Respiratory: No symptom reported Cardiovascular: No symptom reported Gastrointestinal: No symptom reported Genitourinary: Dysuria, lower back pain Musculoskeletal: No symptom reported Skin: No symptom reported Psychiatric: No symptom reported Endocrine: No symptom reported Hemotologic/Lymphatic: No symptom reported Vital Signs Vital Signs Date Time Temp Pulse Resp B/P (MAP) Pulse Ox O2 Delivery O2 Flow Rate FiO2 05/24/24 12:23 153/79 05/24/24 09:37 63 05/24/24 09:00 98.2 18 99 98.2 05/24/24 07:30 Room Air* 0 21 Physical Exam General Appearance: Cooperative. Elder. Hard of hearing. In no acute distress Head Exam: Normal inspection Neck Exam: Normal inspection. Non-tender. Normal alignment Pulmonary/Respiratory: Chest non-tender. Clear bilateral breath sounds Cardiovascular/Chest: Regular rate and rhythm. S1, S2. No murmurs. No JVD. Peripheral Pulses: 2+ Radial (R). 2+ Radial (L). 2+ Pedal (R). 2+ Pedal (L) Abdominal Exam: Normal bowel sounds. Soft. Nontender. No hepatospenomegaly. No masses Ankle Exam: Negative ankle edema Lower extremities: Negative lower extremity edema Neuro/Mental Status: A&O x. Coherent Thoughts/Psych: Normal thought pattern. Appropriate mood and affect. Good judgement and insight Appearance: In no acute distress Skin Exam: Normal inspection. Normal color. Warm. Dry Labs/Diagnostic Data Labs Test 05/24/24 06:17 05/23/24 18:25 05/23/24 13:48 Range/Units White Blood Count 3.4 #L 4.4-10.8 10^3/uL Red Blood Count 3.17 L 4.0-5.20 10^6/uL Hemoglobin 9.0 L 12.2-16.2 g/dL Hematocrit 27.0 L 36.0-46.0 % Mean Corpuscular Volume 85.2 80.0-100.0 fL Mean Corpuscular Hemoglobin 28.4 28.0-32.0 pg Mean Corpuscular Hemoglobin Concent 33.3 32.0-36.0 g/dL Red Cell Distribution Width 17.2 H 11.8-14.3 % Platelet Count 189 140-450 10^3/uL Mean Platelet Volume 10.9 H 6.9-10.8 fL Neutrophils (%) (Auto) 61.2 37.0-80.0 % Lymphocytes (%) (Auto) 23.5 10.0-50.0 % Monocytes (%) (Auto) 13.7 H 0.0-12.0 % Eosinophils (%) (Auto) 1.2 0.0-7.0 % Basophils (%) (Auto) 0.4 0.0-2.0 % Neutrophils # (Auto) 2.1 1.6-8.6 10 ^3/uL Lymphocytes # (Auto) 0.8 0.4-5.4 10 ^3/uL Monocytes # (Auto) 0.5 0-1.3 10 ^3/uL Eosinophils # (Auto) 0 0-0.8 10 ^3/uL Basophils # (Auto) 0 0-0.2 10 ^3/uL Nucleated Red Blood Cells 0.2 % Platelet Estimate Adequate Anisocytosis (manual) Slight Macrocytosis Moderate Schistocytes Moderate Sodium Level 143 136-145 mmol/L Potassium Level 4.0 3.5-5.1 mmol/L Chloride Level 110 H 98-107 mmol/L Carbon Dioxide Level 26 20-31 mmol/L Anion Gap 7 5-15 Blood Urea Nitrogen 18 9-23 mg/dL Creatinine 0.97 0.550-1.02 mg/dL Glomerular Filtration Rate Calc 56 >90 mL/min BUN/Creatinine Ratio 18.6 10.0-20.0 Serum Glucose 64 L 74-106 mg/dL Calcium Level 10.2 8.7-10.4 mg/dL Troponin I High Sensitivity 212 *H </=34 ng/L Urine Color Light-yellow Yellow Urine Clarity Turbid H Clear Urine pH 5.5 5.0-9.0 Urine Specific [place] 1.016 1.001-1.035 Urine Protein 1+ H Negative Urine Ketones Negative Negative Urine Blood Trace H Negative /uL Urine Nitrite Negative Negative Urine Bilirubin Negative Negative Urine Urobilinogen Normal Negative mg/dL Urine Leukocyte Esterase 3+ Negative /uL Urine RBC 11 0 - 4 /hpf Urine WBC 254 0 - 5 /hpf Urine Squamous Epithelial Cells None seen <5 /hpf Urine Bacteria Few H None Seen /hpf Urine Glucose Normal Normal mg/dL Assessment Hypertensive urgency Acute cystitis NSTEMI, likely type 2 secondary to above Paroxysmal atrial fibrillation, on ASA at home Chronic compensated HFrecEF Presence of AICD Anemia and chronic disease Acute kidney injury Plan/Recommendation (Dr. Farmer) The patient presents cardiac symptom free. Likely NSTEMI type 2 secondary to hypertensive urgency and acute cystitis. A previous transthoracic echocardiogram revealed an EF of 50%. We recommend routine follow-up with primary scientific glass blower [place] [facility] [place] Continue ABX therapy per primary care team. There is no further cardiac workup indicated at this time. Kindly call if you need to re-consult. Thank you for allowing us to participate in this patient's care. Wyatt alvarez call if you have any questions or concerns. This medical document was created using an electronic medical record system with voice recognition software and computerized dictation system. Although this document has been carefully reviewed, there might still be some phonetic and typographical errors. Occasional wrong-word or ``sound-alike substitutions may have occurred due to the inherent limitations of voice recognition software. These areas are purely typographical due to imperfections of the software programs and do not reflect any compromise in the patient's medical care. Please read the chart carefully and recognize, using context, where these substitutions have occurred. Plan discussed with: Patient, Other Date of Service: May 24, 2024 Billing Provider: VIC FARMER MD Cardiology Common Codes: [id number] INP/OBS CARE (High) MARIANGEL BROUSSARD [facility] May 24, 2024 13:23
--- NOTE | 2024-05-24 14:18 | DVH ---
RENAL ULTRASOUND CLINICAL HISTORY: Back pain, rule out obstructive uropathy TECHNIQUE: Multiple ultrasound images of the kidneys and bladder were obtained. COMPARISON: None FINDINGS: The right kidney measures 10 cm in length. The left kidney measures 11 cm. There is a 6 mm calculus i n the midpole of the right kidney in the 5 mm calculus in the midpole of the left kidney. There is le ft renal hydronephrosis. The kidneys appear echogenic with cortical thinning which May relate to med ical renal disease. The bladder appears within normal limits with prevoid volume measuring 313 cc. IMPRESSION: 1. Bilateral subcentimeter renal calculi measuring up to 6 mm . 2. There is left renal hydronephrosis. 3. The kidneys appear echogenic with cortical thinning which May relate to medical renal disease. HS:Y
[2024-05-24] MEDS ORDERED: AMIO100T3 PO (16:42)
[2024-05-24] MEDS ORDERED: AMLO1TAB21 PO (16:42)
[2024-05-24] MEDS ORDERED: BUME0.5T4 PO (16:42)
[2024-05-24] MEDS: PHENAZOPYRIDINE HCL 100 MG TAB PO SCH (18:17)
[2024-05-25] VITALS (7 sets, daily range): BP systolic 112–157; BP diastolic 38–56; PULSE 60–74; RESP 16–19; TEMP 97.3–98.2; O2SAT 97–100
[2024-05-25] MEDS: ONDANSETRON HCL 4 MG/2 ML VIAL IV PRN (09:01)
--- NOTE | 2024-05-25 11:23 | DVHPN2 ---
Reviewed: Care Plan, H&P, Labs, Medications Changes from previous H/P or p: No Changes General: Per HPI Eyes: No Pain, No Vision change, No Conjunctivae inflammation, No Eyelid inflammation, No Other, No Redness ENT: No Ear pain, No Ear discharge, No Nose pain, No Nose discharge, No Nose congestion, No Mouth pain, No Mouth swelling, No Throat pain, No Throat swelling, No Other Cardiovascular: Chest Pain; No Palpitations, No Orthopnea, No Paroxysmal Noc. Dyspnea, No Edema, No Lt Headedness, No Other Respiratory: No Cough, No Dry, No Shortness of breath, No SOB with excertion, No Wheezing, No Hemoptysis, No Pleuritic Pain, No Sputum, No Other Gastrointestinal: No Nausea, No Vomiting, No Abdominal Pain, No Diarrhea, No Constipation, No Melena, No Hematochezia, No Other Genitourinary: Dysuria, Frequency, Incontinence; No Hematuria, No Retention, No Other Musculoskeletal: No other, No neck pain, No shoulder pain, No arm pain, No back pain, No hand pain, No leg pain, No foot pain Skin: No Rash, No Lesions, No Jaundice, No Bruising, No Other Objective Vitals Vital Signs Date Time Temp Pulse Resp B/P (MAP) Pulse Ox O2 Delivery O2 Flow Rate FiO2 05/25/24 09:00 98.0 60 16 157/50 (85) 97 98.0 05/25/24 07:30 Room Air* 0 21 Intake/Output Intake and Output 05/25/24 07:00 Intake Total 2200 ml Balance 2200 ml Intake Oral 1450 ml IV Total 750 ml # Voids 8 # Bowel Movements 1 General Appearance: Alert, Oriented X3, Cooperative, mild distress HEENT: Atraumatic, PERRLA Lungs: Clear to auscultation, Normal air movement Cardiovascular: Normal S1, Normal S2 Abdomen: Normal bowel sounds, Soft, No tenderness Musculoskeletal: Normal sensory function, Normal motor function Neuro: Normal gait, Normal speech Psych/Mental Status: Mental status NL, Mood NL Medications Current Medications Medications Dose Ordered Sig/Dee Route Start Time Stop Time Status Last Admin Dose Admin Sodium Chloride 1,000 ml @ 75 mls/hr [id number] IV 05/23/24 15:45 05/24/24 22:23 75 MLS/HR Aspirin 81 mg DAILY PO 05/24/24 10:00 05/25/24 08:06 81 MG Atorvastatin Calcium 40 mg HS PO 05/23/24 22:00 05/24/24 21:09 40 MG Carvedilol 6.25 mg Q12HR PO 05/23/24 22:00 05/25/24 08:08 6.25 MG Lisinopril 5 mg DAILY PO 05/24/24 10:00 05/25/24 08:08 5 MG Morphine Sulfate 2 mg Q30MP PRN IV 05/23/24 15:45 Acetaminophen 650 mg Q6HP PRN PO 05/23/24 15:45 05/25/24 08:07 650 MG Zolpidem Tartrate 5 mg QHSP PRN PO 05/23/24 15:45 Lorazepam 0.5 mg Q6HP PRN PO 05/23/24 15:45 Docusate Sodium 100 mg DAILY PO 05/24/24 10:00 05/25/24 08:07 100 MG Nitroglycerin 0.4 mg Q5MINP PRN SL 05/23/24 15:45 Ondansetron HCl 4 mg Q4HP PRN IV 05/23/24 15:45 05/25/24 09:01 4 MG Ceftriaxone Sodium 50 ml @ 100 mls/hr DAILY@09 IV 05/23/24 17:24 05/25/24 08:07 100 MLS/HR Clonidine HCl 0.1 mg Q4HP PRN PO 05/23/24 23:00 05/24/24 12:23 0.1 MG Phenazopyridine HCl 100 mg BIDWM PO 05/24/24 18:00 05/26/24 17:59 05/25/24 08:07 100 MG Laboratory Results Laboratory Tests 05/24/24 06:17 Urinalysis Test 05/23/24 13:48 Urine Color Light-yellow (Yellow) Urine Clarity Turbid (Clear) H Urine pH 5.5 (5.0-9.0) Urine Specific [place] 1.016 (1.001-1.035) Urine Protein 1+ (Negative) H Urine Ketones Negative (Negative) Urine Blood Trace /uL (Negative) H Urine Nitrite Negative (Negative) Urine Bilirubin Negative (Negative) Urine Urobilinogen Normal mg/dL (Negative) Urine Leukocyte Esterase 3+ /uL (Negative) Urine RBC 11 /hpf (0 - 4) Urine WBC 254 /hpf (0 - 5) Urine Squamous Epithelial Cells None seen /hpf (<5) Urine Bacteria Few /hpf (None Seen) H Urine Glucose Normal mg/dL (Normal) Microbiology Microbiology Date/Time Source Procedure Growth Status 05/24/24 00:00 Voided Urine Urine Culture - Preliminary Resulted Labs and/or images reviewed: Labs reviewed by me, Image(s) reviewed by me Assessment/Plan Assessment/Plan Covering for nurse practitioner Mu Paul Hypertensive urgency Acute cystitis Enterococcus: Continue Rocephin NSTEMI, likely type 2 secondary to above Paroxysmal atrial fibrillation, on ASA at home Chronic compensated HFrecEF Presence of AICD Anemia and chronic disease Acute kidney injury Hematuria: Renal ultrasound shows left hydronephrosis Plan discussed with: Patient Date of Service: May 25, 2024 Billing Provider: TREVOR LUNA MD Common Visit Codes: [id number] INP/OBS CARE(HIGH) TREVOR LUNA MD May 25, 2024 11:23
[2024-05-26] VITALS (8 sets, daily range): BP systolic 143–159; BP diastolic 30–68; PULSE 60–66; RESP 16–18; TEMP 97.4–98.2; O2SAT 94–98
--- NOTE | 2024-05-26 08:13 | DVHPN2 ---
Reviewed: Care Plan, H&P, Labs, Medications Changes from previous H/P or p: No Changes, Changes General: Per HPI Eyes: No Pain, No Vision change, No Conjunctivae inflammation, No Eyelid inflammation, No Other, No Redness ENT: No Ear pain, No Ear discharge, No Nose pain, No Nose discharge, No Nose congestion, No Mouth pain, No Mouth swelling, No Throat pain, No Throat swelling, No Other Cardiovascular: Chest Pain; No Palpitations, No Orthopnea, No Paroxysmal Noc. Dyspnea, No Edema, No Lt Headedness, No Other Respiratory: No Cough, No Dry, No Shortness of breath, No SOB with excertion, No Wheezing, No Hemoptysis, No Pleuritic Pain, No Sputum, No Other Gastrointestinal: No Nausea, No Vomiting, No Abdominal Pain, No Diarrhea, No Constipation, No Melena, No Hematochezia, No Other Genitourinary: Dysuria, Frequency, Incontinence; No Hematuria, No Retention, No Other Musculoskeletal: No other, No neck pain, No shoulder pain, No arm pain, No back pain, No hand pain, No leg pain, No foot pain Skin: No Rash, No Lesions, No Jaundice, No Bruising, No Other Objective Vitals Vital Signs Date Time Temp Pulse Resp B/P (MAP) Pulse Ox O2 Delivery O2 Flow Rate FiO2 05/26/24 05:00 97.4 66 18 159/64 (95) 97 97.4 05/25/24 20:00 Room Air* 0 21 Intake/Output Intake and Output 05/26/24 07:00 Intake Total 2300 ml Balance 2300 ml Intake Oral 1250 ml IV Total 1050 ml # Voids 6 # Bowel Movements 2 General Appearance: Alert, Oriented X3, Cooperative, mild distress HEENT: Atraumatic, PERRLA Lungs: Clear to auscultation, Normal air movement Cardiovascular: Normal S1, Normal S2 Abdomen: Normal bowel sounds, Soft, No tenderness Musculoskeletal: Normal sensory function, Normal motor function Neuro: Normal gait, Normal speech Psych/Mental Status: Mental status NL, Mood NL Medications Current Medications Medications Dose Ordered Sig/Dee Route Start Time Stop Time Status Last Admin Dose Admin Sodium Chloride 1,000 ml @ 75 mls/hr [id number] IV 05/23/24 15:45 05/25/24 16:06 75 MLS/HR Aspirin 81 mg DAILY PO 05/24/24 10:00 05/25/24 08:06 81 MG Atorvastatin Calcium 40 mg HS PO 05/23/24 22:00 05/25/24 21:18 40 MG Carvedilol 6.25 mg Q12HR PO 05/23/24 22:00 05/25/24 08:08 6.25 MG Lisinopril 5 mg DAILY PO 05/24/24 10:00 05/25/24 08:08 5 MG Morphine Sulfate 2 mg Q30MP PRN IV 05/23/24 15:45 Acetaminophen 650 mg Q6HP PRN PO 05/23/24 15:45 05/26/24 00:40 650 MG Zolpidem Tartrate 5 mg QHSP PRN PO 05/23/24 15:45 Lorazepam 0.5 mg Q6HP PRN PO 05/23/24 15:45 Docusate Sodium 100 mg DAILY PO 05/24/24 10:00 05/25/24 08:07 100 MG Nitroglycerin 0.4 mg Q5MINP PRN SL 05/23/24 15:45 Ondansetron HCl 4 mg Q4HP PRN IV 05/23/24 15:45 05/25/24 09:01 4 MG Ceftriaxone Sodium 50 ml @ 100 mls/hr DAILY@09 IV 05/23/24 17:24 05/25/24 08:07 100 MLS/HR Clonidine HCl 0.1 mg Q4HP PRN PO 05/23/24 23:00 05/24/24 12:23 0.1 MG Phenazopyridine HCl 100 mg BIDWM PO 05/24/24 18:00 05/26/24 17:59 05/25/24 17:51 100 MG Laboratory Results Laboratory Tests 05/24/24 06:17 Urinalysis Test 05/23/24 13:48 Urine Color Light-yellow (Yellow) Urine Clarity Turbid (Clear) H Urine pH 5.5 (5.0-9.0) Urine Specific [place] 1.016 (1.001-1.035) Urine Protein 1+ (Negative) H Urine Ketones Negative (Negative) Urine Blood Trace /uL (Negative) H Urine Nitrite Negative (Negative) Urine Bilirubin Negative (Negative) Urine Urobilinogen Normal mg/dL (Negative) Urine Leukocyte Esterase 3+ /uL (Negative) Urine RBC 11 /hpf (0 - 4) Urine WBC 254 /hpf (0 - 5) Urine Squamous Epithelial Cells None seen /hpf (<5) Urine Bacteria Few /hpf (None Seen) H Urine Glucose Normal mg/dL (Normal) Microbiology Microbiology Date/Time Source Procedure Growth Status 05/24/24 00:00 Voided Urine Urine Culture - Preliminary Resulted Assessment/Plan Assessment/Plan Covering for nurse practitioner Mu Blackwoodmendez Sepsis secondary to acute urinary tract infection Acute complicated cystitis urine cultures growing Enterococcus: Continue Rocephin until final culture and sensitivity results Hypertensive urgency NSTEMI, likely type 2 secondary to above Paroxysmal atrial fibrillation, on aspirin at home Chronic compensated HFrecEF Presence of AICD Anemia of chronic disease Acute kidney injury Hematuria: Renal ultrasound shows left hydronephrosis Plan discussed with: Patient Date of Service: May 26, 2024 Billing Provider: TREVOR LUNA MD Common Visit Codes: [id number] INP/OBS CARE(HIGH) TREVOR LUNA MD May 26, 2024 08:13
[2024-05-26] MEDS: IBUPROFEN 600 MG TAB PO PRN (09:21)
[2024-05-27 01:00] VITALS: BP 138/56; PULSE 60; RESP 16; TEMP 97.8; O2SAT 97
[2024-05-27 05:00] VITALS: BP 147/74; PULSE 60; RESP 16; TEMP 97.4; O2SAT 97
[2024-05-27 08:00] VITALS: PULSE 60
[2024-05-27 09:00] VITALS: BP 175/44; PULSE 60; RESP 17; TEMP 98; O2SAT 95
[2024-05-27] MEDS ORDERED: CIPR500T4 PO (09:58)
[2024-05-27] MEDS ORDERED: SACC250C PO (09:58)
[2024-05-27] MEDS ORDERED: CEL100T PO (09:58)
[2024-05-27] MEDS: FLORASTOR (S. BOULARDII) 250 MG CAP PO SCH (10:00)
[2024-05-27] MEDS: CELECOXIB 100 MG CAP PO ONE (10:00)
[2024-05-27] MEDS: CIPROFLOXACIN HCL 500 MG TAB PO SCH (10:00)
--- NOTE | 2024-05-27 10:05 | DVHDS2 ---
Discharge Summary Date of Admission May 23, 2024 at 15:45 Date of Discharge: May 27, 2024 Admitting Diagnosis NSTEMI type 2 Labs/Diagnostic Data: Laboratory Results Test 05/25/24 06:11 05/24/24 06:17 05/23/24 13:48 Troponin I High Sensitivity 200 ng/L (</=34) White Blood Count 3.4 10^3/uL (4.4-10.8) Red Blood Count 3.17 10^6/uL (4.0-5.20) Hemoglobin 9.0 g/dL (12.2-16.2) Hematocrit 27.0 % (36.0-46.0) Mean Corpuscular Volume 85.2 fL (80.0-100.0) Mean Corpuscular Hemoglobin 28.4 pg (28.0-32.0) Mean Corpuscular Hemoglobin Concent 33.3 g/dL (32.0-36.0) Red Cell Distribution Width 17.2 % (11.8-14.3) Platelet Count 189 10^3/uL (140-450) Mean Platelet Volume 10.9 fL (6.9-10.8) Neutrophils (%) (Auto) 61.2 % (37.0-80.0) Lymphocytes (%) (Auto) 23.5 % (10.0-50.0) Monocytes (%) (Auto) 13.7 % (0.0-12.0) Eosinophils (%) (Auto) 1.2 % (0.0-7.0) Basophils (%) (Auto) 0.4 % (0.0-2.0) Neutrophils # (Auto) 2.1 10 ^3/uL (1.6-8.6) Lymphocytes # (Auto) 0.8 10 ^3/uL (0.4-5.4) Monocytes # (Auto) 0.5 10 ^3/uL (0-1.3) Eosinophils # (Auto) 0 10 ^3/uL (0-0.8) Basophils # (Auto) 0 10 ^3/uL (0-0.2) Nucleated Red Blood Cells 0.2 % Platelet Estimate Adequate Anisocytosis (manual) Slight Macrocytosis Moderate Schistocytes Moderate Sodium Level 143 mmol/L (136-145) Potassium Level 4.0 mmol/L (3.5-5.1) Chloride Level 110 mmol/L (98-107) Carbon Dioxide Level 26 mmol/L (20-31) Anion Gap 7 (5-15) Blood Urea Nitrogen 18 mg/dL (9-23) Creatinine 0.97 mg/dL (0.550-1.02) Glomerular Filtration Rate Calc 56 mL/min (>90) BUN/Creatinine Ratio 18.6 (10.0-20.0) Serum Glucose 64 mg/dL (74-106) Calcium Level 10.2 mg/dL (8.7-10.4) Urine Color Light-yellow (Yellow) Urine Clarity Turbid (Clear) Urine pH 5.5 (5.0-9.0) Urine Specific Gilliam 1.016 (1.001-1.035) Urine Protein 1+ (Negative) Urine Ketones Negative (Negative) Urine Blood Trace /uL (Negative) Urine Nitrite Negative (Negative) Urine Bilirubin Negative (Negative) Urine Urobilinogen Normal mg/dL (Negative) Urine Leukocyte Esterase 3+ /uL (Negative) Urine RBC 11 /hpf (0 - 4) Urine WBC 254 /hpf (0 - 5) Urine Squamous Epithelial Cells None seen /hpf (<5) Urine Bacteria Few /hpf (None Seen) Urine Glucose Normal mg/dL (Normal) Other Laboratory Tests 05/24/24 06:17 Brief Hx & Hospital Course: History of Present Illness 88-year-old female past medical history of diabetes hypertension comes to the ED with complaints of having pain while urinating patient states that for the past few days she has been having flank pain bilaterally been having trouble urinating having pain while urinating having generalized weakness and feeling like there was headaches and that she is getting dizzy sometimes and also having trouble with how many times she has to go to the bathroom patient was evaluated in the ED shown to have urinary tract infection and was recommended for inpatient admission management and continued care. Course of hospitalization: Cardiology consultation was obtained. Patient was loaded in the ER diagnosed with NSTEMI type 2 secondary to hypertensive crisis in complicated cystitis. Patient was started on IV Rocephin. Patient also reported having joint pain neck, as well as headache, as well as right arm pain, which is probably attributed to osteoarthritis given her clinical presentation. Patient was started on ibuprofen in the hospital which five did not totally alleviate the patient's pain. Patient will be given a trial of Celebrex. Preliminary urine culture was positive for Enterococcus species. Patient was antibiotic therapy at the change of ciprofloxacin 500 mg p.o. twice a day for seven days. She was also going to be prescribed Celebrex 100 mg p.o. twice a day for two weeks in addition to Florastor 250 mg p.o. daily for abdominal discomfort secondary to antibiotics. Patient will also be evaluated my physical therapy given her generalized deconditioning and we will have social service consultation for establishment of home PT. The patient was agreeable with discharge plan. All questions answered. Physical examination General: Alert and Oriented x3. No acute distress. Well-nourished. Eyes: EOMI. Anicteric. HENT: Moist mucous membranes. Lungs: Clear to auscultation bilaterally. No accessory muscle use. Cardiovascular: Regular rate and rhythm. No murmur. No JVD. Abdomen: Soft, non-tender and non-distended. No palpable masses. Extremities: No edema. Non-tender. Skin: No rashes or lesions. Warm. Neurologic: No focal neurological deficits. CN II-XII grossly intact, but not individually tested. Psychiatric: Cooperative. Appropriate mood and affect. Total time spent with patient discussing and formulating plan of care: 35 minutes. This medical document was created using an electronic medical record system with [employer] dictation system. Although this document has been carefully reviewed, there may still be some phonetic and typographical errors. These areas are purely typographical due to imperfections of the software programs, and do not reflect any compromise in the patient's medical care. Consults/Reason for consult Cardiology: NSTEMI Condition at Discharge: Guarded Final Diagnosis/Problems List Complicated cystitis Secondary Diagnosis: -NSTEMI, type 2 -CAD, history -primary hypertension -osteoarthritis -deconditioning with wheel chair bound status Discharge Disposition: Home with Health Services Discharge Instruct/Medications Diet: Cardiac 2g Na,low cholest Activity: No Restrictions, As Tolerated Follow Up/Referral: PCP in 1-2 weeks Continue with home physical therapy Medications: Continue all previous home medications Ciprofloxacin 500 mg p.o. b.i.d. x7 days Celebrex 100 mg p.o. b.i.d. Florastor dilated 250 mg p.o. daily 36 Discharge Statement: "Patient was advised to return to the ER or call 911 if any headaches, dizziness, shortness of breath, chest pain, abdominal pain, bleeding, fevers, or worsening of medical condition. Patient was counseled about treatment plan, medications, possible side effects, patientverbalized understanding. All questions were answered to the best of my ability. This discharge took greater then 30 minutes in planning, reviewing documentation, counseling the patient, and discussing with other team members." ASSESSMENT ASSESSMENT Assessment Complicated cystitis Date of Service: May 27, 2024 Billing Provider: FRANCO CRESPO NP Common Visit Codes: 28961-CYZ/OBS DISCH DAY >30min FRANCO CRESPO NP May 27, 2024 10:05
[2024-05-27 12:56] VITALS: BP 146/35
[2024-05-27 14:19] VITALS: BP 146/35; PULSE 60; TEMP 36.7
== END 2024-05-27 17:34 | disposition home health service (06) | DRG 689 ==
LOC: ER 13:32 → TELE 15:45 → TELE-CENTR 23:10
PROVIDERS: ADMIT Hospitalist; ATTEND Nurse Practitioner Acute Care
DX: N30.80 Other cystitis without hematuria (principal); I21.A1 Myocardial infarction type 2; I50.22 Chronic systolic (congestive) heart failure; E11.9 Type 2 diabetes mellitus without complications; I25.10 Atherosclerotic heart disease of native coronary artery without angina pectoris; I27.20 Pulmonary hypertension, unspecified; I48.0 Paroxysmal atrial fibrillation; I16.0 Hypertensive urgency; D63.8 Anemia in other chronic diseases classified elsewhere; I11.0 Hypertensive heart disease with heart failure; E78.5 Hyperlipidemia, unspecified; J44.9 Chronic obstructive pulmonary disease, unspecified; Z88.1 Allergy status to other antibiotic agents; Z95.810 Presence of automatic (implantable) cardiac defibrillator; Z90.711 Acquired absence of uterus with remaining cervical stump; Z83.3 Family history of diabetes mellitus; Z79.82 Long term (current) use of aspirin; Z79.899 Other long term (current) drug therapy; Z88.2 Allergy status to sulfonamides
CPT/HCPCS: 36415; 76775; 80048; 81001; 84484; 85025; 87086; 97163; 99291; G0378; J2405